=== PATIENT | male | born 1960 | race Caucasian/White ===

== ENCOUNTER 2018-04-18 21:49 | Emergency (ER) | payer MEDICAID, OTHER ==
[~2018-04-18] VITALS: Ht 170.2 cm; Wt 95.3 kg
--- NOTE | 2018-04-18 23:00 | NUR ---
BBSELF C/C RUQ ABD PAIN RADIATING DOWN TO UMBILICAL REGION X1 MONTH.-N.V.D.-DYSURIA. -HEMATURIA. PAIN WORSE WHEN EXERTING. PT STATES "I CAN SEE SWELLING IN THE UMBILICAL REGION WHEN LIFTING". PT IS AAOX4. SKIN WARM AND DRY. NO S/S OF ACUTE DISTRESS NOTED. RESP EVEN AND UNLABORED. PT PLACED ON MONITOR AND POX. PT SAFETY AND COMFORT MEASURES IN PLACE. BEDSIDE FOR ALLISON
[2018-04-18 23:11] LABS: BASOPHILS # (AUTO) 0.1 /CMM (0.0-0.2); BASOPHILS % (AUTO) 0.9 % (0.0-2.0); EOSINOPHILS % (AUTO) 1.8 % (0.0-6.0); HEMATOCRIT 51 % (39-51); LYMPHOCYTES # (AUTO) 4.5 /CMM (0.8-4.8); LYMPHOCYTES % (AUTO) 34.9 % (20.0-44.0); MEAN CORPUSCULAR HEMOGLOBIN 31 PG (26.0-33.0); MEAN CORPUSCULAR HGB CONC 34 g/dl (31.0-36.0); MEAN CORPUSCULAR VOLUME 92 fL (80-96); MONOCYTES # (AUTO) 0.6 /CMM (0.1-1.30); MONOCYTES % (AUTO) 4.3 % (2.0-12.0); NEUTROPHILS # (AUTO) 7.4 /CMM (1.8-8.9); NEUTROPHILS % (AUTO) 58.1 % (43.0-81.0); PLATELET COUNT (AUTO) 246 /CMM (150-450); RDW COEFFICIENT OF VARIATION 12.7 (11.5-15.0); RED BLOOD CELL COUNT(AUTO) 5.49 MIL/uL (4.5-6.0); WHITE BLOOD COUNT (AUTO) 12.8 K/uL (4.3-11.0)
[2018-04-18] MEDS ORDERED: IOHEXOL-350 100 ML VIAL IV ONE (23:17)
[2018-04-18] MEDS ORDERED: CT SWABBABLE VALVE TRANS SET 1 EA INFUS.SET MC ONE (23:17)
[2018-04-18] MEDS ORDERED: IV NS 0.9% 250 ML IV ONE (23:18)
[2018-04-18 23:25] LABS: INR 0.96 (0.87-1.13)
[2018-04-18 23:35] LABS: CALCIUM, SERUM 9.5 mg/dL (8.5-10.1); CARBON DIOXIDE 27 mmol/L (21-32); CHLORIDE 105 mmol/L (98-107); CREATININE 0.7 mg/dL (0.6-1.3); GLUCOSE 128 mg/dL (74-106); POTASSIUM 3.6 mmol/L (3.5-5.1); SODIUM SERUM 143 mmol/L (136-145); UREA NITROGEN, BLOOD 19 mg/dL (7-18)
[2018-04-18 23:39] LABS: TROPONIN I < 0.017 ng/mL (0.00-0.056)
[2018-04-18 23:41] LABS: ALANINE AMINOTRANSFERASE 40 U/L (12-78); ALBUMIN 4.2 g/dL (3.4-5.0); ALKALINE PHOSPHATASE 62 U/L (46-116); ASPARTATE AMINOTRANSFERASE 19 U/L (15-37); BILIRUBIN,DIRECT 0.1 mg/dL (0.0-0.2); LIPASE 145 U/L (73-393); TOTAL PROTEIN, SERUM 7.7 g/dL (6.4-8.2)
--- NOTE | 2018-04-19 02:48 | NUR ---
Patient discharged to home in stable condition. Written and verbal after care instructions given. Patient verbalizes understanding of instruction.IV removed. Catheter intact and site benign. Pressure and 4x4 applied to site. No bleeding noted. PT AMBULATED WITH STEADY GAIT OUT OF ER
[2018-04-19 02:54] VITALS: BP 124/72
== END 2018-04-19 02:56 | disposition home or self-care (01) ==
LOC: ER 21:53
DX: R10.11 Right upper quadrant pain (principal); I10 Essential (primary) hypertension; E11.9 Type 2 diabetes mellitus without complications; E78.5 Hyperlipidemia, unspecified; F17.200 Nicotine dependence, unspecified, uncomplicated
CPT/HCPCS: 36415; 76705-TC; 80048-TC; 80076-TC; 83690-TC; 84484-TC; 85025-TC; 85730-TC; A4606; J7050; Q9967; Z7610

== ENCOUNTER 2021-08-01 22:48 | Emergency (ER) | payer MEDICAID ==
[~2021-08-01] VITALS: Ht 167.6 cm; Wt 99.8 kg
--- NOTE | 2021-08-01 23:01 | NUR ---
PATIENT WAS BIBSELF FROM HOME WHO APPARENTLY TESTED POSITIVE FOR COVID ON TUESDAY, AND NOW COMPLAINING OF SOB, ACCOMPANIED BY WHO ALSO TESTED POSITIVE AND WAS HAVING THE SAME SYMPTOMS. PT IS AAO X 4, SATURATION AT 96% ON ROOM AIR, NO SIGN OF ACUTE DISTRESS NOTED. PT WAS SEEN AND EXAMINED BY DR LATHAM. PT ATTACHED TO MONITOR AND PULSE OX. WILL CONTINUE TO MONITOR AND CARRY OUT MD ORDERS.
[2021-08-02] MEDS ORDERED: ACETAMINOPHEN 325 MG TABLET PO ONE (02:00)
[2021-08-02] MEDS ORDERED: ACETAMINOPHEN 325 MG TABLET ONE (02:25)
--- NOTE | 2021-08-02 02:56 | NUR ---
FOLLOWED UP WITH [facility]
[2021-08-02] MEDS ORDERED: ACET160T99 PO (03:43)
--- NOTE | 2021-08-02 04:00 | NUR ---
DISCHARGE INSTRUCTIONS GIVE TO PT WITH RX. PT VERBALIZES UNDERSTANDING. PT LEFT AMBULATING IN STABLE CONDITION
[2021-08-02 04:32] VITALS: BP 144/82
== END 2021-08-02 04:33 | disposition home or self-care (01) ==
LOC: ER 22:49
DX: U07.1 COVID-19 (principal); F17.290 Nicotine dependence, other tobacco product, uncomplicated; E78.5 Hyperlipidemia, unspecified; Z79.899 Other long term (current) drug therapy
CPT/HCPCS: 71045-TC